=== PATIENT | female | born 2000 | race African-American/Black ===

== ENCOUNTER 2020-04-25 02:19 | Inpatient (IN) ==
[2020-04-25] MEDS ORDERED: ONDANSETRON 4 MG TAB.RAPDIS PO PRN (03:35)
[2020-04-25] MEDS ORDERED: OXYTOCIN/0.9 % SODIUM CHLORIDE 30 UNITS/500 ML BAG IV ONE ×2 (03:35→06:14)
[2020-04-25] MEDS ORDERED: RINGER'S SOLUTION,LACTATED 1,000 ML IV ONE (03:35)
[2020-04-25] MEDS ORDERED: PENICILLIN G POTASSIUM 5 MILLIONUNT in DEXTROSE 5 % IN WATER 100 ML IV ONE ×2 (03:35)
[2020-04-25] MEDS ORDERED: RINGER'S SOLUTION,LACTATED 1,000 ML IV PRN (03:35)
[2020-04-25] MEDS ORDERED: BUPIVACAINE HCL/0.9 % NACL/PF 250 ML EP PRN (03:38)
[2020-04-25] MEDS ORDERED: ONDANSETRON HCL/PF 2 MG/ML VIAL IV PRN (03:38)
[2020-04-25] MEDS ORDERED: NALOXONE HCL 1 MG/1 ML SYRG IV PRN (03:38)
[2020-04-25 03:40] LABS: Hematocrit 35.8 % (37.0-47.0); Mean Cell Volume 83.4 fl (78-100); Mean Corpuscular Hgb Conc 33.5 g/dl (32-36); Mean Platelet Volume 10.3 fl (8-12.5); Neutrophil # 7.6 K/mm3 (1.3-6.0); Neutrophil % 75.1 % (42-75.0); Platelet Count 145 K/mm3 (150-450); Red Blood Count 4.29 M/mm3 (4.2-5.4); Red Cell Distribution Width 14.3 % (11.5-14.0); White Blood Count 10.1 K/mm3 (4.0-10.5)
[2020-04-25] MEDS ORDERED: BUPIVACAINE HCL/PF 30 ML VIAL EP SCH (03:45)
[2020-04-25] MEDS ORDERED: LIDOCAINE HCL 50 ML VIAL IJ ONE (04:44)
--- NOTE | 2020-04-25 05:06 | ANES ---
Anesthesia Pre Procedure Eval Vitals/Labs: Last Vital Signs Temp 36.4 C 04/25/20 05:02 Pulse 99 04/25/20 05:02 Resp 20 04/25/20 05:02 BP 142/93 H 04/25/20 05:02 Pulse Ox 100 04/25/20 05:02 HOME MEDICATIONS prenat.vits,eddie,aiy-wyae-lxxmh 1 tab PO DAILY 10/26/19 [Last Taken 04/24/20] ferrous sulfate 325 mg (65 mg iron) tablet 325 mg PO DAILY 03/15/20 [Last Taken 04/24/20] Allergies/Adverse Reactions: Allergies Allergy/AdvReac Type Severity Reaction Status Date / Time No Known Allergies Allergy Verified 04/20/20 10:18 - Planned Procedure Planned Procedure: Labor Epidural Medication List Reviewed:: Yes Allergies Verified: Yes Medical History (Last Reviewed 04/25/20 @ 05:05 by John iCntron CRNA) Tinea versicolor Surgical History (Last Reviewed 04/25/20 @ 05:06 by John Cintron CRNA) No pertinent past surgical history Family History (Last Reviewed 04/25/20 @ 05:06 by John Cintron CRNA) Mother Diabetes Sister Diabetes - Anesthesia Assessment and Plan ASA Class: PS, II Anesthesia Type Plan: Epidural
--- NOTE | 2020-04-25 05:25 | ANES ---
Anesthesia Procedure Note Procedure Note: ANESTHESIA PROCEDURE NOTE Date of Procedure: 04/25/2020. Time of procedure: 509. Performed by: John Cintron CRNA Call Center Support Consultant: None. Preprocedure diagnosis: Active labor. Post procedure diagnosis: Same. Procedure: Insertion of labor epidural. Indications: The patient is a 19-year-old female in active labor requesting labor epidural for pain management. Findings: See below. Details of the procedure: The patient was placed in a sitting position. DuraPrep as well as Betadine swabs X3 was applied to the patient's back. Patient was then draped in a sterile fashion. Lidocaine 1% was infiltrated to the skin and subcutaneous tissues at the level of the L3-4 interspace. The epidural space was identified using a 18-gauge Tuohy needle with [id number] technique. Epidural catheter was inserted to a depth of 10 centimeters at skin. Negative test dose was elicited using 3 mL of 1.5% preservative-free lidocaine plus epinephrine 1 200,000. The epidural catheter was then taped and secured in place. A loading dose of 8 mL of 0.25% preservative-free bupivacaine was administered to the epidural catheter after negative aspiration for blood and CSF. EBL: Minimal. Fluids: N/A. Specimen: N/A. Post procedure condition: The patient tolerated the procedure well. No complications were noted. Thank you for this consultation. John Cintron CRNA
--- NOTE | 2020-04-25 05:25 | ANES ---
Post Anesthesia Assessment - Vital Signs Vitals: Last Vital Signs Temp 36.4 C 04/25/20 05:02 Pulse 99 04/25/20 05:02 Resp 20 04/25/20 05:02 BP 142/93 H 04/25/20 05:02 Pulse Ox 100 04/25/20 05:02 Airway Patency: Normal - Mental Status Level Of Consciousness: Awake - N/V Assessment Nausea/Vomiting Presence: None Dehydration:: No
--- NOTE | 2020-04-25 06:06 | HP ---
Chief Complaint - Chief Complaint Date of Service: 04/25/20 Time of Service: 06:05 Chief Complaint: ruptured, labor History of Present Illness: 19 year old at 38w 0d who presented to L&D ruptured and in labor. She reports she ruptured last evening while vomiting but she thought she just wet herself. She has regular contractions. Fetus active. Medical History (Last Reviewed 04/25/20 @ 06:17 by Soheila Graves MD) Tinea versicolor Surgical History: Surgical History (Last Reviewed 04/25/20 @ 06:17 by Soheila Graves MD) No pertinent past surgical history Family History: Family History (Last Reviewed 04/25/20 @ 06:17 by Soheila Graves MD) Mother Diabetes Sister Diabetes Social History: (Last Reviewed 04/25/20 @ 06:17 by Soheila Graves MD) Social History: adopted: No Marital status: Single household members: family number of children: 0 current occupational status: employed current occupation: [employer] Highest education level completed: high school graduate Sexually Active: Yes Service: No Tobacco: Smoking Status: Never smoker Alcohol: alcohol intake: never Substance Use: substance use type: does not use Dietary Habits: caffeine: No Review Of Systems (GEN) - Review of Systems Generalized/Overall Review: Present: No Symptoms Reported Misc: All systems neg except as marked Immunizations: IMMUNIZATION HX Immunizations Up to Date Yes History of Influenza Vaccine No Hx Pneumococcal Vaccination No Allergies/Adverse Reactions: Allergies Allergy/AdvReac Type Severity Reaction Status Date / Time No Known Allergies Allergy Verified 04/20/20 10:18 Home Medications: HOME MEDICATIONS prenat.vits,eddie,kzl-[id number]-vmvat 1 tab PO DAILY 10/26/19 [Last Taken 04/24/20] ferrous sulfate 325 mg (65 mg iron) tablet 325 mg PO DAILY 03/15/20 [Last Taken 04/24/20] Exam - Exam Vital Signs: Vital Signs - Last Taken Temp 36.4 C 04/25/20 05:02 Pulse 99 04/25/20 05:02 Resp 20 04/25/20 05:02 BP 142/93 H 04/25/20 05:02 Pulse Ox 100 04/25/20 05:02 Constitutional: Present: Alert, Oriented x3, Cooperative, No distress ENT Exam: Present: hearing grossly normal Eye Exam: bilateral eye: normal inspection Neck: Present: normal inspection Back Exam: Present: normal inspection Breasts: Present: Exam deferred Respiratory: Present: lungs clear, normal breath sounds Cardiovascular/Chest: Present: regular rate, rhythm Abdomen: Present: soft, nontender, nondistended /Rectal: Present: Exam deferred Extremity: Present: non-tender, no calf tenderness Skin Exam: Present: normal color, warm/dry, no cyanosis Neurologic: Present: alert, normal mood/affect, oriented x 3 Appearance: Present: appropriate appearance, appropriate insight, neat, no memory impairment Eye contact: Present: cooperative, good eye contact, normal speech Thoughts: Present: normal thought pattern Diagnostic Studies: Abnormal Lab Results 04/25/20 Range/Units 03:35 Hgb 12.0 L (12.5-16.0) gm/dL Hct 35.8 L (37.0-47.0) % RDW 14.3 H (11.5-14.0) % Plt Count 145 L (150-450) K/mm3 Immature Gran % (Auto) 1.10 H (0.001-0.429) % Immature Gran # (Auto) 0.11 H (0.000-0.0310) K/mm3 Neutrophils % 75.1 H (42-75.0) % Lymphocytes % 15.8 L (20-51) % Neutrophils # 7.6 H (1.3-6.0) K/mm3 Laboratory Results WBC 10.1 K/mm3 (4.0-10.5) 04/25/20 03:35 RBC 4.29 M/mm3 (4.2-5.4) 04/25/20 03:35 Hgb 12.0 gm/dL (12.5-16.0) L 04/25/20 03:35 Hct 35.8 % (37.0-47.0) L 04/25/20 03:35 MCV 83.4 fl (78-100) 04/25/20 03:35 MCH 28.0 pg (27-31) 04/25/20 03:35 MCHC 33.5 g/dl (32-36) 04/25/20 03:35 RDW 14.3 % (11.5-14.0) H 04/25/20 03:35 Plt Count 145 K/mm3 (150-450) L 04/25/20 03:35 MPV 10.3 fl (8-12.5) 04/25/20 03:35 Immature Gran % (Auto) 1.10 % (0.001-0.429) H 04/25/20 03:35 Immature Gran # (Auto) 0.11 K/mm3 (0.000-0.0310) H 04/25/20 03:35 Neutrophils % 75.1 % (42-75.0) H 04/25/20 03:35 Lymphocytes % 15.8 % (20-51) L 04/25/20 03:35 Monocytes % 7.5 % (0.0-9) 04/25/20 03:35 Eosinophils % 0.2 % (0.0-3.0) 04/25/20 03:35 Basophils % 0.3 % (0.0-1.0) 04/25/20 03:35 Nucleated RBC % 0.0 k/mm3 (0-1) 04/25/20 03:35 Neutrophils # 7.6 K/mm3 (1.3-6.0) H 04/25/20 03:35 Lymphocytes # 1.59 k/mm3 (1.5-3.5) 04/25/20 03:35 Monocytes # 0.8 k/mm3 (0.0-1.0) 04/25/20 03:35 Eosinophils # 0.0 k/mm3 (0.0-0.7) 04/25/20 03:35 Absolute Basophils 0.0 k/mm3 (0.0-0.1) 04/25/20 03:35 Blood Type A Positive 04/25/20 03:35 Antibody Screen Negative 04/25/20 03:35 Assessment/Plan - Narrative Narrative: 19 year old at 38w 0d 1. s/p vaginal delivery. Patient was ruptured and in labor and progressed quickly 2. GBS bacteriuria: the patient received one dose of PCN - Assessment/Plan (1) 38 weeks gestation of Problem: Acute (2) Prolonged rupture of membranes, delivered Problem: Acute (3) Anemia affecting , antepartum Problem: Acute (4) Rh(D) positive Problem: Acute (5) GBS bacteriuria Problem: Acute
[2020-04-25] MEDS ORDERED: BISACODYL 10 MG SUPP.RECT RC PRN (06:14)
[2020-04-25] MEDS ORDERED: HYDROcodone/ACETAMINOPHEN 1 EACH TABLET PO PRN (06:14)
[2020-04-25] MEDS ORDERED: HYDROCORTISONE 30 APPL TUBE TP PRN (06:14)
[2020-04-25] MEDS ORDERED: SENNOSIDES 8.6 MG TABLET PO PRN (06:14)
[2020-04-25] MEDS ORDERED: diphenhydrAMINE HCL 25 MG CAPSULE PO PRN (06:14)
--- NOTE | 2020-04-25 06:14 | OR ---
Operative Report - Dictated Report Narrative: Date of delivery: 04/25/2020 Time of delivery: 05 Gender: female weight: 3396 grams APGARS: 02/28 Procedure: Description of the procedure: The patient is a 19 year old at 38w 0d who presented to L&D with rupture of membranes and in labor. She progressed to complete dilation. She delivered a viable female infant in direct OA presentation. The shoulders delivered without difficulty followed by the rest of the infant. Cord clamping was delayed for 60 seconds due to vigorous infant. The cord was clamped and cut. Cord blood was collected. The placenta was delivered by expression and appeared intact. EBL: 100 mL Complications: none Lacerations: left vaginal which was hemostatic and not repaired Specimens: cord blood History for Definition: * The number of deliveries resulting in a live the patient experienced prior to current hospitalization * The previous delivery of live twins or any live multiple gestation is considered one live event. *If primagravida or nulliparous is documented select zero for the number of previous live births. Live Events: 0
[2020-04-25] MEDS ORDERED: FLU VACC QS2020-21(6MOS UP)/PF 60 MCG/0.5 ML SYRINGE IM ONE (07:19)
[2020-04-25] MEDS ORDERED: PENICILLIN G POTASSIUM 2.5 MILLIONUNT in DEXTROSE 5 % IN WATER 100 ML IV SCH ×2 (07:45)
[2020-04-25] MEDS: GLYCERIN/WITCH HAZEL LEAF 40 APPL BOX TP PRN (08:08)
[2020-04-25] MEDS: BENZOCAINE/MENTHOL 81 SPRAY CAN TP PRN (08:26)
[2020-04-25] MEDS: DOCUSATE SODIUM 100 MG CAPSULE PO SCH ×2 (10:20→20:41)
[2020-04-25] MEDS: PRENATAL VITS96/IRON FUM/FOLIC 1 TAB TABLET PO SCH (10:21)
[2020-04-25] MEDS: HYDROcodone/ACETAMINOPHEN 1 EACH TABLET PO PRN ×2 (12:15→20:43)
[2020-04-25] MEDS: IBUPROFEN 800 MG TABLET PO PRN (12:16)
--- NOTE | 2020-04-25 23:52 | DS ---
OB Discharge Summary (1) 38 weeks gestation of Status: Acute (2) Prolonged rupture of membranes, delivered Status: Acute (3) Anemia affecting , antepartum Status: Acute (4) Rh(D) positive Status: Acute (5) GBS bacteriuria Status: Acute Delivery Date: 04/25/20 Delivery Time: 05:53 :: 38 Para:: 1 Gestational weeks:: 1 Gestational days:: 0 Intrapartum Procedures: Spontaneous Vaginal Delivery, Anesthesia - Epidural Procedures: None Discharge Diagnosis: Term -Delivered, Other - left vaginal laceration, hemostatic, not repaired - Discharge Information Date of Discharge: 04/25/20 Discharge Location: Home Disposition: Home self-care Condition: Good Activity on Discharge:: Activity as tolerated, Pelvic Rest Discharge Diet: General/regular food Complete Home Medications List: Complete Home Medication List: prenat.vits,eddie,wlb-wfyy-ylksw 1 tab PO DAILY 10/26/19 - Plan Discharge to:: Home Comment:: Routine Discharge Instructions Follow up in office in:: 6 weeks - Information Weight (Grams): 3,396 Infant Sex: Female Score 1 min: 9 Score 5 min: 9 Circumcision: Not Applicable Infant Complications: None Other Complications: Rupture of membranes 28 hours prior to admission
[2020-04-26] MEDS: DOCUSATE SODIUM 100 MG CAPSULE PO SCH ×2 (09:30→21:19)
[2020-04-26] MEDS: PRENATAL VITS96/IRON FUM/FOLIC 1 TAB TABLET PO SCH (09:30)
--- NOTE | 2020-04-26 12:22 | PN ---
Subjective - Date and Time Seen Date: 04/26/20 Time: 12:19 Subjective Narrative: Patient without complaints Objective Objective Narrative: See vital signs - Review of Systems Generalized/Overall Review: Reports: No Symptoms Reported Misc: All systems neg except as marked - Vitals Vitals: Last Vital Signs Temp 36.1 C 04/26/20 07:25 Pulse 63 04/26/20 07:25 Resp 18 04/26/20 07:25 BP 123/67 04/26/20 07:25 Pulse Ox 100 04/26/20 07:25 - Exam Constitutional: Present: Alert, Oriented x3, Cooperative, No distress ENT Exam: Present: hearing grossly normal Cardiovascular/Chest: Present: regular rate, rhythm Extremity: Present: non-tender, no calf tenderness Skin Exam: Present: normal color, warm/dry, no cyanosis Neurologic: Present: alert, normal mood/affect, oriented x 3 Appearance: Present: appropriate appearance, appropriate insight, neat, no memory impairment Eye contact: Present: cooperative, good eye contact, normal speech Thoughts: Present: normal thought pattern Assessment/Plan Plan Narrative: PPD 1 s/p Doing well Discharge tomorrow - Problems/Diagnosis (1) 38 weeks gestation of Problem: Acute (2) Prolonged rupture of membranes, delivered Problem: Acute (3) Anemia affecting , antepartum Problem: Acute (4) Rh(D) positive Problem: Acute (5) GBS bacteriuria Problem: Acute
[2020-04-26] MEDS: HYDROcodone/ACETAMINOPHEN 1 EACH TABLET PO PRN (14:36)
[2020-04-26] MEDS: IBUPROFEN 800 MG TABLET PO PRN (14:36)
[2020-04-27] MEDS: GLYCERIN/WITCH HAZEL LEAF 40 APPL BOX TP PRN (06:32)
[2020-04-27] MEDS: BENZOCAINE/MENTHOL 81 SPRAY CAN TP PRN (06:33)
[2020-04-27 07:28] VITALS: BP 138/61
--- NOTE | 2020-04-27 07:37 | PN ---
Subjective - Date and Time Seen Date: 04/27/20 Time: 07:36 Subjective Narrative: Patient without complaints Objective Objective Narrative: See vital signs - Review of Systems Generalized/Overall Review: Reports: No Symptoms Reported Misc: All systems neg except as marked - Vitals Vitals: Last Vital Signs Temp 36.5 C 04/27/20 06:40 Pulse 61 04/27/20 06:40 Resp 16 04/27/20 06:40 BP 138/61 04/27/20 06:40 Pulse Ox 99 04/27/20 06:40 - Exam Constitutional: Present: Alert, Oriented x3, Cooperative, No distress ENT Exam: Present: hearing grossly normal Neck: Present: normal inspection Abdomen: Present: soft, nontender, nondistended - fundus is firm Extremity: Present: non-tender, no calf tenderness Skin Exam: Present: normal color, warm/dry, no cyanosis Neurologic: Present: alert, normal mood/affect, oriented x 3 Appearance: Present: appropriate appearance, appropriate insight, neat, no memory impairment Eye contact: Present: cooperative, good eye contact, normal speech Thoughts: Present: normal thought pattern Assessment/Plan Plan Narrative: PPD 2 s/p Doing well Discharge today - Problems/Diagnosis (1) 38 weeks gestation of Problem: Acute (2) Prolonged rupture of membranes, delivered Problem: Acute (3) Anemia affecting , antepartum Problem: Acute (4) Rh(D) positive Problem: Acute (5) GBS bacteriuria Problem: Acute
--- NOTE | 2020-04-27 07:39 | DS ---
OB Discharge Summary (1) 38 weeks gestation of Status: Acute (2) Prolonged rupture of membranes, delivered Status: Acute (3) Anemia affecting , antepartum Status: Acute (4) Rh(D) positive Status: Acute (5) GBS bacteriuria Status: Acute Delivery Date: 04/25/20 Delivery Time: 05:53 :: 38 Para:: 1 Gestational weeks:: 1 Gestational days:: 0 Intrapartum Procedures: Spontaneous Vaginal Delivery, Anesthesia - Epidural Procedures: None /OP Complications: No Complications Discharge Diagnosis: Term -Delivered - Discharge Information Discharge Location: Home Disposition: Home self-care Condition: Good Activity on Discharge:: Activity as tolerated, Pelvic Rest Discharge Diet: General/regular food Complete Home Medications List: Complete Home Medication List: prenat.vits,eddie,yns-cdfp-reqtm 1 tab PO DAILY 10/26/19 - Plan Discharge to:: Home Comment:: Routine Discharge Instructions Follow up in office in:: 6 weeks - Information Weight (Grams): 3,396 Sex: Female Score 1 min: 9 Score 5 min: 9 Circumcision: Not Applicable Infant Complications: None Other Complications: Rupture of membranes 28 hours prior to admission
[2020-04-27] MEDS: PRENATAL VITS96/IRON FUM/FOLIC 1 TAB TABLET PO SCH (08:20)
[2020-04-27] MEDS: DOCUSATE SODIUM 100 MG CAPSULE PO SCH (08:20)
== END 2020-04-27 09:35 | disposition home or self-care (01) | DRG 807 ==
LOC: OBCLINIC 02:19 → OB 03:23
PROVIDERS: ADMIT Obstetrics & Gynecology; ATTEND Obstetrics & Gynecology